=== PATIENT | female | born 1940 | race Caucasian/White ===

== ENCOUNTER 2016-09-27 13:51 | Outpatient (CLI) | payer OTHER, BC ==
[~2016-09-27 13:51] MED LIST: CALCIUM + D600 MG PO; CHROND PO; DOXYCYCLINE100 MG PO; GLUCOSAMINE PO; HCTZ/TRIAMTEREN1 TA1 PO; LOVASTATIN40 MG PO; METFORMIN HCL500 MG PO; MULTI COMPLETE PO; PERCOCET1 TA1 PO; PRILOSEC OTC20 MG; ROBAXIN500 M1 PO; TYLENOL325 MG PO; VITAMIN D-31000 UNIT PO; WALKER; ZESTRIL2.5 MG PO; [UNRECOGNIZED DRUG - OTHER]
--- NOTE | 2016-09-27 15:10 | DIAGNOSTIC IMAGING REPORT ---
PROCEDURE: US VENOUS - RIGHT EXT INDICATION: RLE PAIN,SWELLING R/O DVT TECHNIQUE: Duplex sonography of the deep venous system in the right lower extremity was performed. Compression and augmentation techniques were used. COMPARISON: None. FINDINGS: Each interrogated segment of deep vein from the common femoral vein into the calf veins demonstrates normal compressibility, augmentation and/or color Doppler flow without filling defect. No evidence of significant soft-tissue edema, soft-tissue mass or cyst. IMPRESSION: 1. No deep venous thrombosis in the right lower extremity. 2. Results were called Sparkle Tracey at 03:00 p.m.
== END 2016-09-27 23:00 ==
LOC: US SRH 13:51
DX: M79.661 Pain in right lower leg (principal)

== ENCOUNTER 2017-01-08 13:28 | Outpatient (CLI) | payer OTHER, BC ==
--- NOTE | 2017-01-08 15:11 | DIAGNOSTIC IMAGING REPORT ---
PROCEDURE: XR CHEST 2 VIEW INDICATION: ACUTE BRONC TECHNIQUE: PA and lateral views. COMPARISON: Chest 07/08/2015 FINDINGS: Heart size at the upper limits of normal, stable. Normal aortic contour. No central vascular congestion. Clear lungs. No pleural effusion or pneumothorax. Mild degenerative changes in the spine and shoulders. IMPRESSION: 1. No acute process.
== END 2017-01-08 23:00 ==
LOC: XR SRH 13:28
DX: J20.9 Acute bronchitis, unspecified (principal)

== ENCOUNTER 2017-02-02 12:29 | Emergency (ER) | payer OTHER, BC ==
--- NOTE | 2017-02-02 13:12 | DIAGNOSTIC IMAGING REPORT ---
PROCEDURE: XR CHEST 1 VIEW INDICATION: SHORTNESS OF BREATH TECHNIQUE: Portable AP view 12:53 p.m. COMPARISON: chest 01/08/2017 FINDINGS: Lungs are clear. Heart and mediastinum are normal. Thorax is normal. IMPRESSION: 1. Negative chest.
--- NOTE | 2017-02-02 13:15 | DIAGNOSTIC IMAGING REPORT ---
PROCEDURE: CT HEAD WITHOUT CONTRAST INDICATION: HEADACHE TECHNIQUE: Noncontrast axial images with sagittal and coronal reformations. COMPARISON: Head CT 07/08/2015. FINDINGS: Mild motion artifacts. Mild to moderate cortical atrophy with extensive white matter chronic ischemic changes. Normal ventricular system. There is no intracranial hemorrhage, acute CVA, mass or midline shift. Atherosclerosis of the vertebral and intracranial carotid arteries. Visualized sinuses and mastoids are clear. IMPRESSION: 1. No acute intracranial abnormality 2. Mild to moderate cortical atrophy with severe white matter chronic ischemic changes 3. Findings discussed with Dr. Mcdowell at 01:14 p.m., [place] Standard Time.
--- NOTE | 2017-02-02 14:13 | DIAGNOSTIC IMAGING REPORT ---
PROCEDURE: US BILATERAL CAROTID DOPPLER INDICATION: STROKE/CVA TECHNIQUE: Color Doppler duplex imaging of the carotid and vertebral vessels. COMPARISON: Bilateral carotid duplex ultrasound 07/10/2015. FINDINGS: Cardiac arrhythmia. Minimal plaque formation of the bifurcations bilaterally. Right common carotid artery peak systolic velocity 70 cm/second. Right internal carotid artery peak systolic velocity 99 cm/second. Right external carotid artery peak systolic velocity 60 cm/second. Right gbyedcbh-pi-xyzyfd carotid artery ratio 1.4 Right vertebral artery peak systolic velocity 72 cm/second antegrade. Left common carotid artery peak systolic velocity 120 cm/second. Left internal carotid artery peak systolic velocity 108 cm/second. Left external carotid artery peak systolic velocity 75 cm/second. Left cybletav-io-yjejjv carotid artery ratio 0.9 Left vertebral artery peak systolic velocity 85 cm/second antegrade. IMPRESSION: 1. Cardiac arrhythmia 2. Minimal plaque of the bifurcations without hemodynamically significant lesion 3. Bilateral ICA 5-15% stenosis Velocity criteria are extrapolated from diameter data as defined by the Society of Radiologists in Ultrasound Consensus Conference, Radiology 2003; 229; 340-346.
--- NOTE | 2017-02-02 14:13 | DIAGNOSTIC IMAGING REPORT ---
PROCEDURE: US BILATERAL CAROTID DOPPLER INDICATION: STROKE/CVA TECHNIQUE: Color Doppler duplex imaging of the carotid and vertebral vessels. COMPARISON: Bilateral carotid duplex ultrasound 07/10/2015. FINDINGS: Cardiac arrhythmia. Minimal plaque formation of the bifurcations bilaterally. Right common carotid artery peak systolic velocity 70 cm/second. Right internal carotid artery peak systolic velocity 99 cm/second. Right external carotid artery peak systolic velocity 60 cm/second. Right seaxoiuq-fn-bdkrey carotid artery ratio 1.4 Right vertebral artery peak systolic velocity 72 cm/second antegrade. Left common carotid artery peak systolic velocity 120 cm/second. Left internal carotid artery peak systolic velocity 108 cm/second. Left external carotid artery peak systolic velocity 75 cm/second. Left jsmwqmqk-aa-tchakn carotid artery ratio 0.9 Left vertebral artery peak systolic velocity 85 cm/second antegrade. IMPRESSION: 1. Cardiac arrhythmia 2. Minimal plaque of the bifurcations without hemodynamically significant lesion 3. Bilateral ICA 5-15% stenosis Velocity criteria are extrapolated from diameter data as defined by the Society of Radiologists in Ultrasound Consensus Conference, Radiology 2003; 229; 340-346.
--- NOTE | 2017-02-02 15:01 | ED CLINICAL REPORT ---
Clinical Report - Physicians/Mid Levels [facility] [address] [place] [address] 02/02/2017 12:29 Patient: JERRELL HUNT Time Seen: 12:40. Arrived- By ambulance. Historian- patient, EMS personnel, patient's physician and office PA. Note: Patient has a primary care physician on staff; PCP referred patient for evaluation. HISTORY OF PRESENT ILLNESS Chief Complaint: WEAKNESS and IMPAIRED SPEECH. Headache. Fall. This started about 1 week ago and is still present. It was gradual in onset and has been waxing/waning. The patient has had weakness. She has had tingling, (noting some mild bilateral hand tingling after a fall several days ago). She has had difficulty with speech and a recent fall. At its maximum deficit described as moderate. When seen in the E.D., deficit described as mild. Not lightheaded or vertiginous. No altered mental status, seizure or blackouts. Usually is alert and oriented X3. She usually walks using a walker. (last Sunday, pt was walking with walker, and walker flipped over, pt fell, has lower back and left sided pain, feels her speech started getting slurred on Sunday, 3 days ago). Similar symptoms previously: None. Recent medical care: The patient was seen recently in a clinic. REVIEW OF SYSTEMS No fever, chest pain, difficulty breathing, cough or sputum production. No sore throat, abdominal pain, nausea, diarrhea or black stools. No skin rash, enlarged lymph nodes, vomiting or bloody stools. The patient has had a moderate, constant global headache. The headache was gradual in onset and has been associated with weakness. She has had back pain. All systems otherwise negative, except as recorded above. PAST HISTORY ( PCP: DANNA [place], Dr Swift Hypertension. Hyperlipidemia. Reflux with frequent spells of epigastric pain.. Osteomyelitis. No history of coronary artery disease, congestive heart failure, heart rhythm problems or pulmonary embolism. SURGERIES: L Knee Sx staph infection left knee in past, is taking doxycycline for it). Medications: Docusate Calcium Oral, as needed. Robaxin Oral 500 mg, 1/2 tablet, 3x a day as needed. Triamcinolone Acetonide External (Cream 0.1 %), 2x a day as needed. Glucosamine-Chondroitin Oral. Calcium + D3 Oral 2 tabs, daily. Omeprazole Oral 20 mg, daily. Multivitamins Oral. Lovastatin Oral (Tablet 40 mg) 1 tablet, daily. Triamterene-HCTZ Oral (Capsule 37.5-25 mg) 1 capsule, daily. [place] Oral (Tablet 5-325 mg) 1-2 tabs prn pain. Doxycycline Hyclate Oral 100 mg twice daily. Aspirin Oral (Tablet Chewable 81 mg) 1 tablet. MetFORMIN HCl Oral 750mg ER [id number], daily. Allergies: Boniva. Gabapentin. Nortriptyline. Xarelto. SOCIAL HISTORY Never smoker. Occasional alcohol use. No drug use. Is a local resident. ADDITIONAL NOTES The nursing notes have been reviewed. PHYSICAL EXAM Vital Signs: 02/02/2017 12:50 BP: 198/99. 02/02/2017 12:49 BP: 208/115. HR: 80. RR: 16. O2 saturation: 100%. Temp: 98 F. Pain level now: 9/10. Appearance: Alert. No acute distress. Head: Head atraumatic. ENT: Normal ENT inspection. Airway intact. Pharynx normal. Neck: Trachea is not deviated. Normal inspection. Neck supple. Moderate soft tissue tenderness in the right mid and lower neck area and left mid and lower neck area. No decreased ROM in the neck, carotid bruit, JVD or meningeal signs. CVS: Heart sounds normal. Pulses normal. Respiratory: No respiratory distress. Abdomen: Soft and nontender. No organomegaly. Back: Normal inspection. Skin: Skin warm and dry. Normal skin color. No rash. Normal skin turgor. Extremities: Extremities exhibit normal ROM. No calf tenderness. No lower extremity edema. Neuro: Alert. Oriented X 3. Mood/affect normal. Speech normal. Cranial nerves normal (as tested). No cerebellar findings. No motor deficit. No sensory deficit. Reflexes normal. LABS, X-RAYS, AND EKG EKG: EKG time: (13:20). Normal sinus rhythm. Rate: 80. Normal P waves. Normal DONNA. Q waves in lead III and aVF. Normal axis. Normal ST and T waves. The study has been interpreted contemporaneously by me. The EKG appears to be a good tracing. Rhythm Strip #1: Normal sinus rhythm. Regular rhythm. Narrow QRS complexes. Chest X-ray: No acute disease. Views: AP (portable). Technique: good. The X-rays were interpreted contemporaneously by me. The X-rays were discussed with the radiologist (via PACS report). CT Head: Calcification present. No acute changes. No bony abnormalities, no hemorrhage, no intracranial mass, no midline shift and no hydrocephalus. Head CT performed without contrast. The study was independently viewed by me and interpreted by the radiologist. The study was discussed with the radiologist (at 13:15). Duplex Ultrasound: Right and left carotid study. Negative results. Laboratory Tests: UA-Culture if indicated: (MARCIA: 02/02/2017 12:53) ( [facility] 02/02/2017 13:13) Final results Test Result Flag Units (Reference) URINE COLOR YELLOW URINE APPEARANCE CLEAR URINE GLUCOSE NEGATIVE (NEGATIVE) URINE BILIRUBIN NEGATIVE (NEGATIVE) URINE KETONE NEGATIVE (NEGATIVE) URINE SPECIFIC GRAVITY <= 1.005 L (1.010-1.030) URINE PH 6.0 (5.0-8.0) URINE PROTEIN NEGATIVE (NEGATIVE) URINE UROBILINOGEN 0.2 EU/dL (0.2-1.0) URINE NITRITE NEGATIVE (NEGATIVE) URINE BLOOD TRACE-INTACT (NEGATIVE) URINE LEUK ESTERASE NEGATIVE (NEGATIVE) URINE RBC 1-3 rbc/hpf (0-1) URINE WBC 0-1 wbc/hpf (0-1) URINE EPITHELIAL CELLS 0-1 EPI/hpf (0-5) URINE BACTERIA TRACE (<1+) (NONE SEEN) URINE COMMENT CULT NOT INDICATED URINE CULTURES ARE SET-UP BASED ON THE FOLLOWING CRITERIA:POSITIVE NITRITEPOSITIVE LEUKOCYTE ESTERASEGREATER THAN 10 WHITE BLOOD CELLSMODERATE (2+) OR GREATER BACTERIA CBC w Diff: (MARCIA: 02/02/2017 13:19) ( [facility] 02/02/2017 13:44) Final results Test Result Flag Units (Reference) WHITE BLOOD COUNT 8.7 K/uL (4.5-11.5) RED BLOOD COUNT 4.25 M/uL (4.00-5.20) HEMOGLOBIN 12.0 gm/dL (12.0-16.0) HEMATOCRIT 36.3 % (36.0-46.0) MEAN CELL VOLUME 85 fL (80-100) MEAN CORPUSCULAR HGB 28 pg (26-34) MEAN CORPUSCULAR HGB CONC 33 g/dL (31-37) RED CELL DISTRIBUTION WIDTH 16.6 H % (11.6-14.8) PLATELET COUNT 281 K/uL (150-400) NEUTROPHIL % 72.2 % (50-75) LYMPH % 18.8 L % (25-40) MONO % 7.9 % (3-14) EOSINOPHIL % 1.0 % (0-4) BASOPHIL % 0.1 % (0-2) SED RATE WESTERGREN 28 mm/hr (0-30) PT with INR: (MARCIA: 02/02/2017 13:19) ( [facility] 02/02/2017 13:36) Final results Test Result Flag Units (Reference) INR 0.9 (0.8-1.2) Low Intensity Therapy: INR 1.5-2.0 PT range 18.5-23.1Mod.Intensity Therapy: INR 2.0-3.0 PT range 23.1-31.5High Intensity Therapy: INR 2.5-3.5 PT range 27.4-35.5High Intensity Therapy 2: INR 3.0-4.0 PT range 31.5-39.3 APTT 26 SECONDS (24-34) D-DIMER QUANTITATIVE 0.40 ug/mLFEU (0.27-0.52) The primary value of this quantitative assay relates toits negative predictive value (i.e. exclusion) of pulmonaryembolism/deep vein thrombosis/DIC.Elevated levels of d-dimer may also occur with:, age, cancer, inflammation, liver disease,post-op, infection, hematoma, coronary disease, peripheralarteriopathy, bleeding disorders and thrombolytic treatment.Results should be correlated with other clinical andradiological data.Testing Methodology: Latex Immunoassay Urine Drug Screen: (MARCIA: 02/02/2017 12:53) ( [facility] 02/02/2017 13:26) Final results Test Result Flag Units (Reference) AMPHETAMINE/METHAMPHETAMINE NEGATIVE (NEGATIVE) BARBITURATE NEGATIVE (NEGATIVE) BENZODIAZEPINE NEGATIVE (NEGATIVE) CANNABINOID NEGATIVE (NEGATIVE) COCAINE NEGATIVE (NEGATIVE) ECSTASY NEGATIVE (NEGATIVE) METHADONE NEGATIVE (NEGATIVE) OPIATE POSITIVE H (NEGATIVE) The urine drug screen is a qualitative screening test fordrug overdose and abuse. All screen results should beconsidered as presumptive.Drugs screened for are as follows:BenzodiazepinesCocaineAmphetamines/MetamphetaminesTHC (Tetrahydrocannabinol)OpiatesBarbituratesEcstasyMethadonePositive results are unconfirmed. For confirmation, notifythe lab for the specimen to be sent to the reference lab.All confirmations must be performed by a differentmethodology.The ingestion of natural herbal and plant productscontaining Ephedra/Ephedra metabolites can produce in urineone or more substances capable of cross reacting withamphetamine/methamphetamine immunoassays. These testsprovide a preliminary result only. A more specificalternative chemical method must be used to obtain aconfirmed analytical result. BNP: (MARCIA: 02/02/2017 13:19) ( [facility] 02/02/2017 13:44) Final results Test Result Flag Units (Reference) B-TYPE NATRIURETIC PEPTIDE 36.6 pg/ml (5-100) CHEM 13 PANEL: (MARCIA: 02/02/2017 13:19) ( [facility] 02/02/2017 14:15) Final results Test Result Flag Units (Reference) GLUCOSE 85 mg/dL (70-110) BUN 11 mg/dL (7-18) CREATININE 0.7 mg/dL (0.6-1.3) Estimated GFR >60 mL/min Estimated GFR- >60 mL/min Note: Persistent reduction over 3 months in eGFR<60 mL/min/1.73 m2 defines CKD. Patients with eGFR values>=60 mL/min/1.73 m2 may also have CKD if evidence ofpersistent proteinuria. Additional information may be foundat www.kidney.org. SODIUM 139 mmol/L (136-145) POTASSIUM 3.2 L mmol/L (3.5-5.1) CHLORIDE 101 mmol/L (98-107) CARBON DIOXIDE 27 mmol/L (21-32) CALCIUM 9.1 mg/dL (8.5-10.1) TOTAL PROTEIN 7.7 g/dL (6.4-8.2) ALBUMIN 3.5 g/dL (3.3-5.0) BILIRUBIN, TOTAL 0.4 mg/dL (0.0-1.0) ALKALINE PHOSPHATASE 73 U/L (46-116) AST (SGOT) 28 U/L (15-37) ALT (SGPT) 31 U/L (12-78) MAGNESIUM 1.4 L mg/dL (1.8-2.4) AMYLASE 69 U/L (25-115) CPK 83 U/L (24-260) TROPONIN I 0.05 ng/mL (0.00-1.5) TROPONIN REFERENCE RANGE:<0.1 NEGATIVE0.1-1.5 INDETERMINANT>1.5 POSITIVE ETHYL ALCOHOL < 3.0 L mg/dL (3-10) THYROID STIMULATING HORMONE 1.007 uIU/mL (0.30-3.74) . Bedside Tests: Glucose normal - 92 (performed at bedside). Pulse Oximetry: 02/02/2017 12:49 O2 saturation: 100%. (FIO2 - room air). Interpretation: normal. PROGRESS AND PROCEDURES Course of Care: Normal Saline 250 mL IVPB given. Potassium Chloride 40 meq PO given. Zofran 4 mg IVP given. Dilaudid 0.5 mg IVP given. 13:07 02/02/17. Just back from CT No evident neurologic deficit now - speech is normal and no focal weakness or numbness (FAST is neg) 14:36 02/02/17. BP: 156/72. HR: 74. RR: 18. O2 saturation: 98% on room air. Pain level now: 02/03. 15:00 02/02/17. Patient is stable. Physical exam findings are improved. Symptoms much better. D/w Dr Swift - does not feel patient requires admission now with neg Head CT and other work up. Requests stopping methocarbamol and begining tizanidine. Discussed case with health care provider (Belkis Cintron - just prior to patient's arrival). Discussed case with patient's primary care provider, (Jeniffer call returned 14:56). Reviewed test results. Agreed upon treatment plan. Health care provider will see patient in office. Patient/family counseled. Additional history sought (from family). Old ED records reviewed. Disposition: Discharged. Condition: stable and improved. CLINICAL IMPRESSION Episodic, poorly controlled tension and vascular headache. Essential hypertension. Hypokalemia INSTRUCTIONS Drink plenty of fluids. (Stop Robaxin and try tizanidine as prescribed). Warnings: Further evaluation is necessary. It is very important to follow up with a physician. CONTROLLED SUBSTANCE WARNINGS. GENERAL WARNINGS: Return or contact your physician immediately if your condition worsens or changes unexpectedly, if not improving as expected, or if other problems arise. Your Current Medications: STOP TAKING THE FOLLOWING MEDICATIONS: Robaxin Oral : 500 mg, 1/2 tablet 3x a day, prn. CONTINUE TAKING THE FOLLOWING MEDICATIONS: Aspirin Oral : Tablet Chewable 81 mg, 1 tablet. Calcium + D3 Oral : 2 tabs daily. Docusate Calcium Oral : prn. Doxycycline Hyclate Oral : 100 mg twice daily. Glucosamine-Chondroitin Oral. Lovastatin Oral : Tablet 40 mg, 1 tablet daily. MetFORMIN HCl Oral : 750mg ER [id number] daily. Multivitamins Oral. [place] Oral : Tablet 5-325 mg, 1-2 tabs prn pain. Omeprazole Oral : 20 mg daily. Triamcinolone Acetonide External : Cream 0.1 %, 2x a day, prn. Triamterene-HCTZ Oral : Capsule 37.5-25 mg, 1 capsule daily. Prescription Medications: Tizanidine 4 mg: Take 1 tablet orally every 8 hours as needed for muscle spasm. Dispense fifteen (15). No refills. Follow-up with: Troy Swift MD, [facility], , [facility], [address] [place] [address] Follow up in about three days. (Electronically signed by Mayur Mcdowell DO 02/02/2017 16:45)
--- NOTE | 2017-02-02 15:01 | ED CLINICAL REPORT ---
Clinical Report - Physicians/Mid Levels [facility] [address] [place] [address] 02/02/2017 12:29 Patient: JERRELL HUNT Time Seen: 12:40. Arrived- By ambulance. Historian- patient, EMS personnel, patient's physician and office PA. Note: Patient has a primary care physician on staff; PCP referred patient for evaluation. HISTORY OF PRESENT ILLNESS Chief Complaint: WEAKNESS and IMPAIRED SPEECH. Headache. Fall. This started about 1 week ago and is still present. It was gradual in onset and has been waxing/waning. The patient has had weakness. She has had tingling, (noting some mild bilateral hand tingling after a fall several days ago). She has had difficulty with speech and a recent fall. At its maximum deficit described as moderate. When seen in the E.D., deficit described as mild. Not lightheaded or vertiginous. No altered mental status, seizure or blackouts. Usually is alert and oriented X3. She usually walks using a walker. (last Sunday, pt was walking with walker, and walker flipped over, pt fell, has lower back and left sided pain, feels her speech started getting slurred on Sunday, 3 days ago). Similar symptoms previously: None. Recent medical care: The patient was seen recently in a clinic. REVIEW OF SYSTEMS No fever, chest pain, difficulty breathing, cough or sputum production. No sore throat, abdominal pain, nausea, diarrhea or black stools. No skin rash, enlarged lymph nodes, vomiting or bloody stools. The patient has had a moderate, constant global headache. The headache was gradual in onset and has been associated with weakness. She has had back pain. All systems otherwise negative, except as recorded above. PAST HISTORY ( PCP: DANNA Gillette, Dr Swift Hypertension. Hyperlipidemia. Reflux with frequent spells of epigastric pain.. Osteomyelitis. No history of coronary artery disease, congestive heart failure, heart rhythm problems or pulmonary embolism. SURGERIES: L Knee Sx staph infection left knee in past, is taking doxycycline for it). Medications: Docusate Calcium Oral, as needed. Robaxin Oral 500 mg, 1/2 tablet, 3x a day as needed. Triamcinolone Acetonide External (Cream 0.1 %), 2x a day as needed. Glucosamine-Chondroitin Oral. Calcium + D3 Oral 2 tabs, daily. Omeprazole Oral 20 mg, daily. Multivitamins Oral. Lovastatin Oral (Tablet 40 mg) 1 tablet, daily. Triamterene-HCTZ Oral (Capsule 37.5-25 mg) 1 capsule, daily. Archbold Oral (Tablet 5-325 mg) 1-2 tabs prn pain. Doxycycline Hyclate Oral 100 mg twice daily. Aspirin Oral (Tablet Chewable 81 mg) 1 tablet. MetFORMIN HCl Oral 750mg ER QA90cbmy, daily. Allergies: Boniva. Gabapentin. Nortriptyline. Xarelto. SOCIAL HISTORY Never smoker. Occasional alcohol use. No drug use. Is a local resident. ADDITIONAL NOTES The nursing notes have been reviewed. PHYSICAL EXAM Vital Signs: 02/02/2017 12:50 BP: 198/99. 02/02/2017 12:49 BP: 208/115. HR: 80. RR: 16. O2 saturation: 100%. Temp: 98 F. Pain level now: 9/10. Appearance: Alert. No acute distress. Head: Head atraumatic. ENT: Normal ENT inspection. Airway intact. Pharynx normal. Neck: Trachea is not deviated. Normal inspection. Neck supple. Moderate soft tissue tenderness in the right mid and lower neck area and left mid and lower neck area. No decreased ROM in the neck, carotid bruit, JVD or meningeal signs. CVS: Heart sounds normal. Pulses normal. Respiratory: No respiratory distress. Abdomen: Soft and nontender. No organomegaly. Back: Normal inspection. Skin: Skin warm and dry. Normal skin color. No rash. Normal skin turgor. Extremities: Extremities exhibit normal ROM. No calf tenderness. No lower extremity edema. Neuro: Alert. Oriented X 3. Mood/affect normal. Speech normal. Cranial nerves normal (as tested). No cerebellar findings. No motor deficit. No sensory deficit. Reflexes normal. LABS, X-RAYS, AND EKG EKG: EKG time: (13:20). Normal sinus rhythm. Rate: 80. Normal P waves. Normal DONNA. Q waves in lead III and aVF. Normal axis. Normal ST and T waves. The study has been interpreted contemporaneously by me. The EKG appears to be a good tracing. Rhythm Strip #1: Normal sinus rhythm. Regular rhythm. Narrow QRS complexes. Chest X-ray: No acute disease. Views: AP (portable). Technique: good. The X-rays were interpreted contemporaneously by me. The X-rays were discussed with the radiologist (via PACS report). CT Head: Calcification present. No acute changes. No bony abnormalities, no hemorrhage, no intracranial mass, no midline shift and no hydrocephalus. Head CT performed without contrast. The study was independently viewed by me and interpreted by the radiologist. The study was discussed with the radiologist (at 13:15). Duplex Ultrasound: Right and left carotid study. Negative results. Laboratory Tests: UA-Culture if indicated: (MARCIA: 02/02/2017 12:53) ( [facility] 02/02/2017 13:13) Final results Test Result Flag Units (Reference) URINE COLOR YELLOW URINE APPEARANCE CLEAR URINE GLUCOSE NEGATIVE (NEGATIVE) URINE BILIRUBIN NEGATIVE (NEGATIVE) URINE KETONE NEGATIVE (NEGATIVE) URINE SPECIFIC GRAVITY <= 1.005 L (1.010-1.030) URINE PH 6.0 (5.0-8.0) URINE PROTEIN NEGATIVE (NEGATIVE) URINE UROBILINOGEN 0.2 EU/dL (0.2-1.0) URINE NITRITE NEGATIVE (NEGATIVE) URINE BLOOD TRACE-INTACT (NEGATIVE) URINE LEUK ESTERASE NEGATIVE (NEGATIVE) URINE RBC 1-3 rbc/hpf (0-1) URINE WBC 0-1 wbc/hpf (0-1) URINE EPITHELIAL CELLS 0-1 EPI/hpf (0-5) URINE BACTERIA TRACE (<1+) (NONE SEEN) URINE COMMENT CULT NOT INDICATED URINE CULTURES ARE SET-UP BASED ON THE FOLLOWING CRITERIA:POSITIVE NITRITEPOSITIVE LEUKOCYTE ESTERASEGREATER THAN 10 WHITE BLOOD CELLSMODERATE (2+) OR GREATER BACTERIA CBC w Diff: (MARCIA: 02/02/2017 13:19) ( [facility] 02/02/2017 13:44) Final results Test Result Flag Units (Reference) WHITE BLOOD COUNT 8.7 K/uL (4.5-11.5) RED BLOOD COUNT 4.25 M/uL (4.00-5.20) HEMOGLOBIN 12.0 gm/dL (12.0-16.0) HEMATOCRIT 36.3 % (36.0-46.0) MEAN CELL VOLUME 85 fL (80-100) MEAN CORPUSCULAR HGB 28 pg (26-34) MEAN CORPUSCULAR HGB CONC 33 g/dL (31-37) RED CELL DISTRIBUTION WIDTH 16.6 H % (11.6-14.8) PLATELET COUNT 281 K/uL (150-400) NEUTROPHIL % 72.2 % (50-75) LYMPH % 18.8 L % (25-40) MONO % 7.9 % (3-14) EOSINOPHIL % 1.0 % (0-4) BASOPHIL % 0.1 % (0-2) SED RATE WESTERGREN 28 mm/hr (0-30) PT with INR: (MARCIA: 02/02/2017 13:19) ( [facility] 02/02/2017 13:36) Final results Test Result Flag Units (Reference) INR 0.9 (0.8-1.2) Low Intensity Therapy: INR 1.5-2.0 PT range 18.5-23.1Mod.Intensity Therapy: INR 2.0-3.0 PT range 23.1-31.5High Intensity Therapy: INR 2.5-3.5 PT range 27.4-35.5High Intensity Therapy 2: INR 3.0-4.0 PT range 31.5-39.3 APTT 26 SECONDS (24-34) D-DIMER QUANTITATIVE 0.40 ug/mLFEU (0.27-0.52) The primary value of this quantitative assay relates toits negative predictive value (i.e. exclusion) of pulmonaryembolism/deep vein thrombosis/DIC.Elevated levels of d-dimer may also occur with:, age, cancer, inflammation, liver disease,post-op, infection, hematoma, coronary disease, peripheralarteriopathy, bleeding disorders and thrombolytic treatment.Results should be correlated with other clinical andradiological data.Testing Methodology: Latex Immunoassay Urine Drug Screen: (MARCIA: 02/02/2017 12:53) ( [facility] 02/02/2017 13:26) Final results Test Result Flag Units (Reference) AMPHETAMINE/METHAMPHETAMINE NEGATIVE (NEGATIVE) BARBITURATE NEGATIVE (NEGATIVE) BENZODIAZEPINE NEGATIVE (NEGATIVE) CANNABINOID NEGATIVE (NEGATIVE) COCAINE NEGATIVE (NEGATIVE) ECSTASY NEGATIVE (NEGATIVE) METHADONE NEGATIVE (NEGATIVE) OPIATE POSITIVE H (NEGATIVE) The urine drug screen is a qualitative screening test fordrug overdose and abuse. All screen results should beconsidered as presumptive.Drugs screened for are as follows:BenzodiazepinesCocaineAmphetamines/MetamphetaminesTHC (Tetrahydrocannabinol)OpiatesBarbituratesEcstasyMethadonePositive results are unconfirmed. For confirmation, notifythe lab for the specimen to be sent to the reference lab.All confirmations must be performed by a differentmethodology.The ingestion of natural herbal and plant productscontaining Ephedra/Ephedra metabolites can produce in urineone or more substances capable of cross reacting withamphetamine/methamphetamine immunoassays. These testsprovide a preliminary result only. A more specificalternative chemical method must be used to obtain aconfirmed analytical result. BNP: (MARCIA: 02/02/2017 13:19) ( [facility] 02/02/2017 13:44) Final results Test Result Flag Units (Reference) B-TYPE NATRIURETIC PEPTIDE 36.6 pg/ml (5-100) CHEM 13 PANEL: (MARCIA: 02/02/2017 13:19) ( [facility] 02/02/2017 14:15) Final results Test Result Flag Units (Reference) GLUCOSE 85 mg/dL (70-110) BUN 11 mg/dL (7-18) CREATININE 0.7 mg/dL (0.6-1.3) Estimated GFR >60 mL/min Estimated GFR- >60 mL/min Note: Persistent reduction over 3 months in eGFR<60 mL/min/1.73 m2 defines CKD. Patients with eGFR values>=60 mL/min/1.73 m2 may also have CKD if evidence ofpersistent proteinuria. Additional information may be foundat www.kidney.org. SODIUM 139 mmol/L (136-145) POTASSIUM 3.2 L mmol/L (3.5-5.1) CHLORIDE 101 mmol/L (98-107) CARBON DIOXIDE 27 mmol/L (21-32) CALCIUM 9.1 mg/dL (8.5-10.1) TOTAL PROTEIN 7.7 g/dL (6.4-8.2) ALBUMIN 3.5 g/dL (3.3-5.0) BILIRUBIN, TOTAL 0.4 mg/dL (0.0-1.0) ALKALINE PHOSPHATASE 73 U/L (46-116) AST (SGOT) 28 U/L (15-37) ALT (SGPT) 31 U/L (12-78) MAGNESIUM 1.4 L mg/dL (1.8-2.4) AMYLASE 69 U/L (25-115) CPK 83 U/L (24-260) TROPONIN I 0.05 ng/mL (0.00-1.5) TROPONIN REFERENCE RANGE:<0.1 NEGATIVE0.1-1.5 INDETERMINANT>1.5 POSITIVE ETHYL ALCOHOL < 3.0 L mg/dL (3-10) THYROID STIMULATING HORMONE 1.007 uIU/mL (0.30-3.74) . Bedside Tests: Glucose normal - 92 (performed at bedside). Pulse Oximetry: 02/02/2017 12:49 O2 saturation: 100%. (FIO2 - room air). Interpretation: normal. PROGRESS AND PROCEDURES Course of Care: Normal Saline 250 mL IVPB given. Potassium Chloride 40 meq PO given. Zofran 4 mg IVP given. Dilaudid 0.5 mg IVP given. 13:07 02/02/17. Just back from CT No evident neurologic deficit now - speech is normal and no focal weakness or numbness (FAST is neg) 14:36 02/02/17. BP: 156/72. HR: 74. RR: 18. O2 saturation: 98% on room air. Pain level now: 02/03. 15:00 02/02/17. Patient is stable. Physical exam findings are improved. Symptoms much better. D/w Dr Swift - does not feel patient requires admission now with neg Head CT and other work up. Requests stopping methocarbamol and begining tizanidine. Discussed case with health care provider (Belkis Cintron - just prior to patient's arrival). Discussed case with patient's primary care provider, (Jeniffer call returned 14:56). Reviewed test results. Agreed upon treatment plan. Health care provider will see patient in office. Patient/family counseled. Additional history sought (from family). Old ED records reviewed. Disposition: Discharged. Condition: stable and improved. CLINICAL IMPRESSION Episodic, poorly controlled tension and vascular headache. Essential hypertension. Hypokalemia INSTRUCTIONS Drink plenty of fluids. (Stop Robaxin and try tizanidine as prescribed). Warnings: Further evaluation is necessary. It is very important to follow up with a physician. CONTROLLED SUBSTANCE WARNINGS. GENERAL WARNINGS: Return or contact your physician immediately if your condition worsens or changes unexpectedly, if not improving as expected, or if other problems arise. Your Current Medications: STOP TAKING THE FOLLOWING MEDICATIONS: Robaxin Oral : 500 mg, 1/2 tablet 3x a day, prn. CONTINUE TAKING THE FOLLOWING MEDICATIONS: Aspirin Oral : Tablet Chewable 81 mg, 1 tablet. Calcium + D3 Oral : 2 tabs daily. Docusate Calcium Oral : prn. Doxycycline Hyclate Oral : 100 mg twice daily. Glucosamine-Chondroitin Oral. Lovastatin Oral : Tablet 40 mg, 1 tablet daily. MetFORMIN HCl Oral : 750mg ER LD95csef daily. Multivitamins Oral. Archbold Oral : Tablet 5-325 mg, 1-2 tabs prn pain. Omeprazole Oral : 20 mg daily. Triamcinolone Acetonide External : Cream 0.1 %, 2x a day, prn. Triamterene-HCTZ Oral : Capsule 37.5-25 mg, 1 capsule daily. Prescription Medications: Tizanidine 4 mg: Take 1 tablet orally every 8 hours as needed for muscle spasm. Dispense fifteen (15). No refills. Follow-up with: Troy Swift MD, [facility], , [facility], [address] [place] [address] Follow up in about three days. (Electronically signed by Mayur Mcdowell DO 02/02/2017 16:45)
--- NOTE | 2017-02-02 15:02 | ED NURSING NOTES ---
Clinical Report - Nurses [facility] [address] [place] [address] 02/02/2017 12:29 Patient: JERRELL HUNT TRIAGE Triage time 12:31. Acuity: LEVEL 3. Chief Complaint: FALL (last Sunday, pt was walking with walker, and walker flipped over, pt fell, has lower back and left sided pain, feels her speech started getting slurred on Sunday, 3 days ago). Alert. --12:43 Jovanna Serrato R.N. Alert. --12:50 Jovanna Serrato R.N. 12:49 02/02/17. BP: 208/115 taken on the left arm. HR: 80. RR: 16. O2 saturation: 100%. Temp: 98 F. Pain level now: 05/06. --12:50 Jovanna Serrato R.N. 12:50 02/02/17. BP: 198/99 taken on the right arm. --12:51 Jovanna Serrato R.N. Weight: 78 kg stated. Height/Length: 62 inches Per Patient. BMI: 31.5. --12:42 Jovanna Serrato R.N. Medications Aspirin Oral (Tablet Chewable 81 mg) 1 tablet. MetFORMIN HCl Oral 750mg ER [id number], daily. --13:06 Jovanna Serrato R.N. Doxycycline Hyclate Oral 100 mg twice daily. --13:29 Jovanna Serrato R.N. Buckner Oral (Tablet 5-325 mg) 1-2 tabs prn pain. --13:29 Jovanna Serrato R.N. Triamterene-HCTZ Oral (Capsule 37.5-25 mg) 1 capsule, daily. --13:30 Jovanna Serrato R.N. Lovastatin Oral (Tablet 40 mg) 1 tablet, daily. --13:31 Jovanna Serrato R.N. Multivitamins Oral. --13:31 Jovanna Serrato R.N. Omeprazole Oral 20 mg, daily. --13:31 Jovanna Serrato R.N. Calcium + D3 Oral 2 tabs, daily. --13:32 Jovanna Serrato R.N. Glucosamine-Chondroitin Oral. --13:32 Jovanna Serrato R.N. Triamcinolone Acetonide External (Cream 0.1 %), 2x a day as needed. --13:32 Jovanna Serrato R.N. Robaxin Oral 500 mg, 1/2 tablet, 3x a day as needed. --13:33 Jovanna Serrato R.N. Docusate Calcium Oral, as needed. --13:33 Jovanna Serrato R.N. Allergies Boniva. Gabapentin. Nortriptyline. Xarelto. --13:05 Jovanna Serrato R.N. History Arrived by EMS. Historian: EMS and patient. Primary physician (Belkis Cintron, Dr. Swift). Location of injuries: lower back, left hip and left thigh. The patient had loss of consciousness. Treatment BAR TACKER: See EMS report. SOCIAL HX: Infectious disease exposure. (staph infection left knee in past, is taking doxycycline for it). --12:43 Jovanna Serrato R.N. SOCIAL HX: Never smoker. No alcohol use. --13:34 Jovanna Serrato R.N. SOCIAL HX: No drug use. --13:34 Jovanna Serrato R.N. FUNCTIONAL ASSESSMENT: Functional assessment performed: uses walker; hearing impairment present- this hearing impairment is an ongoing problem. --14:29 Jovanna Serrato R.N. PROBLEMS: Degenerative Joint Disease. Insomnia. Diabetes Mellitus Type 2. GERD. Back Pain. Hyperlipidemia. Hypertension. Osteoporosis. Osteomyelitis. Staph Infections. --13:03 Jovanna Serrato R.N. ADDITIONAL SURGERIES: Appendectomy. Cholecystectomy. Cleaning of abscess left knee. Hernia Repair. Hysterectomy. Left arm surgery/blood clot removal. 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 Right knee replacement 2006. Right top rib removed. Tonsillectomy. --13:03 Jovanna Serrato R.N. Interventions ID band on patient. To room. --12:43 Jovanna Serrato R.N. PHYSICAL ASSESSMENT HEENT: ( Pt complaining mostly of headache. Pt does not really know what happened when she fell, and does not know if she lost consciousness or not). --13:36 Jovanna Serrato R.N. 12:40. GENERAL / NEURO / PSYCH: Oriented X 4. Nuris Coma Scale: 15- eyes open spontaneously (4); best verbal response- oriented x 4 (5); best motor response- obeys commands (6). Speech normal. Mood/affect normal. Moves all extremities equally. No motor deficit. No sensory deficit. Abnormal gait due to pain in the left lower extremity (due to knee surgery and staph infection). Able to ambulate with a limp. Ambulates using a walker. ( FAST negative.). --14:44 Jovanna Serrato R.N. NURSING PROGRESS NOTES ( Blood Glucose 92). --12:48 Manan Camacho R.N. 12:55 02/02/17. ( Pt assisted to bathroom, UA obtained, back to bed. CXR done in room). --12:55 Jovanna Serrato R.N. 12:55 02/02/17. Patient identifiers checked. Call light placed in reach. Bed placed in lowest position. Patient ready for evaluation- chart flagged. --12:55 Jovanna Serrato R.N. 13:00. Patient transported to CT by stretcher with tech. --13:04 Jovanna Serrato R.N. 13:36 02/02/2017 Site #1 started via IV in the left antecubital space with an 20g angiocath, with aseptic technique and good blood return; one attempt. Blood drawn: rainbow set. Labeled in the presence of the patient and sent to the lab. Saline lock flushed with 10 mL saline. --13:36 Jovanna Serrato R.N. 13:37 02/02/17. ( Pt's brace on left leg removed by fuel retrofitting technician for EKG, then pt assisted to BSC, 2 assist, to void a 2nd time.). --13:37 Jovanna Serrato R.N. 13:44 02/02/2017 Zofran (Ondansetron HCl) IVP 4 mg given over 2 minute(s) via site #1. Allergies verified and confirmed 5 rights. --13:46 Jovanna Serrato R.N. 13:46 02/02/2017 Dilaudid (HYDROmorphone HCl PF) IVP 0.5 mg given over 1 minute(s) via site #1. Allergies verified, confirmed 5 rights and sedative warning given. --13:46 Jovanna Serrato R.N. EKG time: (1320). EKG was ordered, performed by a tech and shown to the ED physician. --13:51 Sho Aviles 13:57 02/02/2017 Started bag #1 1000 mL IV Fluids IV NS (Saline); at 250 mL/hr via site #1 via IV pump. Confirmed 5 rights. --13:57 Jovanna Serrato R.N. 14:36 02/02/17. BP: 156/72. HR: 74. RR: 18. O2 saturation: 98% on room air. Pain level now: 02/03. --14:37 Jovanna Serrato R.N. 14:56 02/02/17. Assisted patient to bedside commode and back to bed; tolerated well (2 person assist, fuel retrofitting technician and myself, voided small amount clear straw urine). --14:56 Jovanna Serrato R.N. 15:46 02/02/2017 Potassium Chloride (Potassium Chloride ER) PO Tablets 40 meq given. Allergies verified and confirmed 5 rights. --15:46 Patience Reagan R.N. DISPOSITION / DISCHARGE 15:55 02/02/17. BP: 155/71. HR: 80. RR: 18. O2 saturation: 98%. Pain level now: 02/03. --16:23 Jovanna Serrato R.N. Departure time: 1555. Condition at departure: improved. No learning barriers present. Discharge instructions provided and reviewed with the patient and family. Reviewed medication(s) information. Prescription(s) given to the patient. Treatments reviewed. Reviewed referral to family practice for followup. Patient verbalized understanding. Written instructions provided. The patient was discharged home and accompanied by family. She left the Emergency Department ambulatory, via private vehicle and (with walker, escorted patient and her son to the vehicle). Family member driving. --16:32 Jovanna Serrato R.N. Locked/Released at 02/02/2017 16:32 by Jovanna Serrato R.N.
--- NOTE | 2017-02-02 15:02 | ED ORDER SUMMARY ---
..... Patient: JERRELL HUNT OrderSheet [facility] VisitID: [id number] [address] [place] [address] 76y, F Registration Date/Time: 02/02/2017 ORDER SHEET Weight: 78.0 kg (stated) Allergies: Boniva, Gabapentin, Nortriptyline, Xarelto GENERAL ORDERS: Chest 1V Urgent (12:40 02/02/2017 PHutchinson DO) (Ack 12:43 KHoerner) (13:12 LSullivan R.N.) Bilingual Social Worker (Continuous) (12:40 02/02/2017 PHutchinson DO) (12:44 JSimbeck R.N.) CT Head wo Cont (speech slurred) Urgent (12:41 02/02/2017 PHutchinson DO) (Ack 12:43 KHoerner) (13:12 LSullivan R.N.) UA-Culture if indicated Urgent (12:41 02/02/2017 PHutchinson DO) (Ack 12:43 KHoerner) (13:12 LSullivan R.N.) Cardiac Panel Stat (12:41 02/02/2017 PHutchinson DO) (Ack 12:43 KHoerner) (13:37 LSullivan R.N.) BNP Urgent (12:41 02/02/2017 PHutchinson DO) (Ack 12:43 KHoerner) (13:37 LSullivan R.N.) D-Dimer Urgent (12:41 02/02/2017 PHutchinson DO) (Ack 12:43 KHoerner) (13:37 LSullivan R.N.) Amylase Urgent (12:41 02/02/2017 PHutchinson DO) (Ack 12:43 KHoerner) (13:37 LSullivan R.N.) PT with INR Urgent (12:41 02/02/2017 PHutchinson DO) (Ack 12:43 KHoerner) (13:37 LSullivan R.N.) PTT Urgent (12:41 02/02/2017 PHutchinson DO) (Ack 12:43 KHoerner) (13:37 LSullivan R.N.) ESR Urgent (12:41 02/02/2017 PHutchinson DO) (Ack 12:43 KHoerner) (13:37 LSullivan R.N.) TSH Urgent (12:41 02/02/2017 PHutchinson DO) (Ack 12:43 KHoerner) (13:37 LSullivan R.N.) Ethyl Alcohol Urgent (12:41 02/02/2017 PHutchinson DO) (Ack 12:43 KHoerner) (13:37 LSullivan R.N.) Urine Drug Screen Urgent (12:41 02/02/2017 PHutchinson DO) (Ack 12:43 KHoerner) (13:12 LSullivan R.N.) Oxygen (2 L/min) (NC) (12:41 02/02/2017 PHutchinson DO) (Cancelled: Other13:58 PHutchinson DO) Pulse oximeter (12:41 02/02/2017 PHutchinson DO) (12:44 JSimbeck R.N.) EKG - ER Stat (12:41 02/02/2017 PHutchinson DO) (13:21 OHernandez) Vitals (12:41 02/02/2017 PHutchinson DO) (12:44 JSimbeck R.N.) POC Glucose (12:41 02/02/2017 PHutchinson DO) (13:12 LSullivan R.N.) US Carotid Doppler Bilat Urgent (12:51 02/02/2017 PHutchinson DO) (Ack 13:13 KHoerner) (13:37 LSullivan R.N.) Call (Place call to): (Dr Swift) (14:49 02/02/2017 PHutchinson DO) (14:51 KHoerner) MEDICATION ORDERS: Potassium Chloride PO 40 meq (NOW) (14:48 02/02/2017 PHutchinson DO) (Ack 15:37 Antwan R.N.) (15:46 Antwan R.N.) IV FLUIDS: IV NS : initial bolus 250 mL (1000 mL/hr), then 250 mL/hr for X3 (NOW) (12:40 02/02/2017 PHutchinson DO) (13:57 LSullivan R.N.) Zofran IV 4 mg (NOW) (12:41 02/02/2017 Maribell CHIRINOS) (13:46 LSullivan R.N.) Dilaudid IV 0.5 mg (HIGH ALERT MEDICATION, NOW) (13:09 02/02/2017 Maribell CHIRINOS) (13:46 LSullivan R.N.) ORDER SHEET NOTES: [Electronically signed by Jovanna Serrato R.N. (16:32 02/02/2017)] [Electronically signed by Mayur Mcdowell DO (16:45 02/02/2017)] [Electronically locked/signed by Jovanna Serrato R.N. (16:32 02/02/2017)]
--- NOTE | 2017-02-02 15:02 | ED ORDER SUMMARY ---
..... Patient: JERRELL HUNT OrderSheet [facility] VisitID: [id number] [address] [place] [address] 76y, F Registration Date/Time: 02/02/2017 ORDER SHEET Weight: 78.0 kg (stated) Allergies: Boniva, Gabapentin, Nortriptyline, Xarelto GENERAL ORDERS: Chest 1V Urgent (12:40 02/02/2017 PHutchinson DO) (Ack 12:43 KHoerner) (13:12 LSullivan R.N.) Pouncing Machine Operator (Continuous) (12:40 02/02/2017 PHutchinson DO) (12:44 JSimbeck R.N.) CT Head wo Cont (speech slurred) Urgent (12:41 02/02/2017 PHutchinson DO) (Ack 12:43 KHoerner) (13:12 LSullivan R.N.) UA-Culture if indicated Urgent (12:41 02/02/2017 PHutchinson DO) (Ack 12:43 KHoerner) (13:12 LSullivan R.N.) Cardiac Panel Stat (12:41 02/02/2017 PHutchinson DO) (Ack 12:43 KHoerner) (13:37 LSullivan R.N.) BNP Urgent (12:41 02/02/2017 PHutchinson DO) (Ack 12:43 KHoerner) (13:37 LSullivan R.N.) D-Dimer Urgent (12:41 02/02/2017 PHutchinson DO) (Ack 12:43 KHoerner) (13:37 LSullivan R.N.) Amylase Urgent (12:41 02/02/2017 PHutchinson DO) (Ack 12:43 KHoerner) (13:37 LSullivan R.N.) PT with INR Urgent (12:41 02/02/2017 PHutchinson DO) (Ack 12:43 KHoerner) (13:37 LSullivan R.N.) PTT Urgent (12:41 02/02/2017 PHutchinson DO) (Ack 12:43 KHoerner) (13:37 LSullivan R.N.) ESR Urgent (12:41 02/02/2017 PHutchinson DO) (Ack 12:43 KHoerner) (13:37 LSullivan R.N.) TSH Urgent (12:41 02/02/2017 PHutchinson DO) (Ack 12:43 KHoerner) (13:37 LSullivan R.N.) Ethyl Alcohol Urgent (12:41 02/02/2017 PHutchinson DO) (Ack 12:43 KHoerner) (13:37 LSullivan R.N.) Urine Drug Screen Urgent (12:41 02/02/2017 PHutchinson DO) (Ack 12:43 KHoerner) (13:12 LSullivan R.N.) Oxygen (2 L/min) (NC) (12:41 02/02/2017 PHutchinson DO) (Cancelled: Other13:58 PHutchinson DO) Pulse oximeter (12:41 02/02/2017 PHutchinson DO) (12:44 JSimbeck R.N.) EKG - ER Stat (12:41 02/02/2017 PHutchinson DO) (13:21 OHernandez) Vitals (12:41 02/02/2017 PHutchinson DO) (12:44 JSimbeck R.N.) POC Glucose (12:41 02/02/2017 PHutchinson DO) (13:12 LSullivan R.N.) US Carotid Doppler Bilat Urgent (12:51 02/02/2017 PHutchinson DO) (Ack 13:13 KHoerner) (13:37 LSullivan R.N.) Call (Place call to): (Dr Swift) (14:49 02/02/2017 PHutchinson DO) (14:51 KHoerner) MEDICATION ORDERS: Potassium Chloride PO 40 meq (NOW) (14:48 02/02/2017 PHutchinson DO) (Ack 15:37 Antwan R.N.) (15:46 Antwan R.N.) IV FLUIDS: IV NS : initial bolus 250 mL (1000 mL/hr), then 250 mL/hr for X3 (NOW) (12:40 02/02/2017 PHutchinson DO) (13:57 LSullivan R.N.) Zofran IV 4 mg (NOW) (12:41 02/02/2017 Maribell CHIRINOS) (13:46 LSullivan R.N.) Dilaudid IV 0.5 mg (HIGH ALERT MEDICATION, NOW) (13:09 02/02/2017 Maribell CHIRINOS) (13:46 LSullivan R.N.) ORDER SHEET NOTES: [Electronically signed by Jovanna Serrato R.N. (16:32 02/02/2017)] [Electronically signed by Mayur Mcdowell DO (16:45 02/02/2017)] [Electronically locked/signed by Jovanna Serrato R.N. (16:32 02/02/2017)]
--- NOTE | 2017-02-02 15:02 | ED NURSING NOTES ---
Clinical Report - Nurses [facility] [address] [place] [address] 02/02/2017 12:29 Patient: JERRELL HUNT TRIAGE Triage time 12:31. Acuity: LEVEL 3. Chief Complaint: FALL (last Sunday, pt was walking with walker, and walker flipped over, pt fell, has lower back and left sided pain, feels her speech started getting slurred on Sunday, 3 days ago). Alert. --12:43 Jovanna Serrato R.N. Alert. --12:50 Jovanna Serrato R.N. 12:49 02/02/17. BP: 208/115 taken on the left arm. HR: 80. RR: 16. O2 saturation: 100%. Temp: 98 F. Pain level now: 05/06. --12:50 Jovanna Serrato R.N. 12:50 02/02/17. BP: 198/99 taken on the right arm. --12:51 Jovanna Serrato R.N. Weight: 78 kg stated. Height/Length: 62 inches Per Patient. BMI: 31.5. --12:42 Jovanna Serrato R.N. Medications Aspirin Oral (Tablet Chewable 81 mg) 1 tablet. MetFORMIN HCl Oral 750mg ER [id number], daily. --13:06 Jovanna Serrato R.N. Doxycycline Hyclate Oral 100 mg twice daily. --13:29 Jovanna Serrato R.N. [place] Oral (Tablet 5-325 mg) 1-2 tabs prn pain. --13:29 Jovanna Serrato R.N. Triamterene-HCTZ Oral (Capsule 37.5-25 mg) 1 capsule, daily. --13:30 Jovanna Serrato R.N. Lovastatin Oral (Tablet 40 mg) 1 tablet, daily. --13:31 Jovanna Serrato R.N. Multivitamins Oral. --13:31 Jovanna Serrato R.N. Omeprazole Oral 20 mg, daily. --13:31 Jovanna Serrato R.N. Calcium + D3 Oral 2 tabs, daily. --13:32 Jovanna Serrato R.N. Glucosamine-Chondroitin Oral. --13:32 Jovanna Serrato R.N. Triamcinolone Acetonide External (Cream 0.1 %), 2x a day as needed. --13:32 Jovanna Serrato R.N. Robaxin Oral 500 mg, 1/2 tablet, 3x a day as needed. --13:33 Jovanna Serrato R.N. Docusate Calcium Oral, as needed. --13:33 Jovanna Serrato R.N. Allergies Boniva. Gabapentin. Nortriptyline. Xarelto. --13:05 Jovanna Serrato R.N. History Arrived by EMS. Historian: EMS and patient. Primary physician (Belkis Cintron, Dr. Swift). Location of injuries: lower back, left hip and left thigh. The patient had loss of consciousness. 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 SOCIAL HX: Infectious disease exposure. (staph infection left knee in past, is taking doxycycline for it). --12:43 Jovanna Serrato R.N. SOCIAL HX: Never smoker. No alcohol use. --13:34 Jovanna Serrato R.N. SOCIAL HX: No drug use. --13:34 Jovanna Serrato R.N. FUNCTIONAL ASSESSMENT: Functional assessment performed: uses walker; hearing impairment present- this hearing impairment is an ongoing problem. --14:29 Jovanna Serrato R.N. PROBLEMS: Degenerative Joint Disease. Insomnia. Diabetes Mellitus Type 2. GERD. Back Pain. Hyperlipidemia. Hypertension. Osteoporosis. Osteomyelitis. Staph Infections. --13:03 Jovanna Serrato R.N. ADDITIONAL SURGERIES: Appendectomy. Cholecystectomy. Cleaning of abscess left knee. Hernia Repair. Hysterectomy. Left arm surgery/blood clot removal. 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 Right knee replacement 2006. Right top rib removed. Tonsillectomy. --13:03 Jovanna Serrato R.N. Interventions ID band on patient. To room. --12:43 Jovanna Serrato R.N. PHYSICAL ASSESSMENT HEENT: ( Pt complaining mostly of headache. Pt does not really know what happened when she fell, and does not know if she lost consciousness or not). --13:36 Jovanna Serrato R.N. 12:40. GENERAL / NEURO / PSYCH: Oriented X 4. Nuris Coma Scale: 15- eyes open spontaneously (4); best verbal response- oriented x 4 (5); best motor response- obeys commands (6). Speech normal. Mood/affect normal. Moves all extremities equally. No motor deficit. No sensory deficit. Abnormal gait due to pain in the left lower extremity (due to knee surgery and staph infection). Able to ambulate with a limp. Ambulates using a walker. ( FAST negative.). --14:44 Jovanna Serrato R.N. NURSING PROGRESS NOTES ( Blood Glucose 92). --12:48 Manan Camacho R.N. 12:55 02/02/17. ( Pt assisted to bathroom, UA obtained, back to bed. CXR done in room). --12:55 Jovanna Serrato R.N. 12:55 02/02/17. Patient identifiers checked. Call light placed in reach. Bed placed in lowest position. Patient ready for evaluation- chart flagged. --12:55 Jovanna Serrato R.N. 13:00. Patient transported to CT by stretcher with tech. --13:04 Jovanna Serrato R.N. 13:36 02/02/2017 Site #1 started via IV in the left antecubital space with an 20g angiocath, with aseptic technique and good blood return; one attempt. Blood drawn: rainbow set. Labeled in the presence of the patient and sent to the lab. Saline lock flushed with 10 mL saline. --13:36 Jovanna Serrato R.N. 13:37 02/02/17. ( Pt's brace on left leg removed by sterile processing technologist for EKG, then pt assisted to BSC, 2 assist, to void a 2nd time.). --13:37 Jovanna Serrato R.N. 13:44 02/02/2017 Zofran (Ondansetron HCl) IVP 4 mg given over 2 minute(s) via site #1. Allergies verified and confirmed 5 rights. --13:46 Jovanna Serrato R.N. 13:46 02/02/2017 Dilaudid (HYDROmorphone HCl PF) IVP 0.5 mg given over 1 minute(s) via site #1. Allergies verified, confirmed 5 rights and sedative warning given. --13:46 Jovanna Serrato R.N. EKG time: (1320). EKG was ordered, performed by a tech and shown to the ED physician. --13:51 Sho Aviles 13:57 02/02/2017 Started bag #1 1000 mL IV Fluids IV NS (Saline); at 250 mL/hr via site #1 via IV pump. Confirmed 5 rights. --13:57 Jovanna Serrato R.N. 14:36 02/02/17. BP: 156/72. HR: 74. RR: 18. O2 saturation: 98% on room air. Pain level now: 02/03. --14:37 Jovanna Serrato R.N. 14:56 02/02/17. Assisted patient to bedside commode and back to bed; tolerated well (2 person assist, sterile processing technologist and myself, voided small amount clear straw urine). --14:56 Jovanna Serrato R.N. 15:46 02/02/2017 Potassium Chloride (Potassium Chloride ER) PO Tablets 40 meq given. Allergies verified and confirmed 5 rights. --15:46 Patience Reagan R.N. DISPOSITION / DISCHARGE 15:55 02/02/17. BP: 155/71. HR: 80. RR: 18. O2 saturation: 98%. Pain level now: 02/03. --16:23 Jovanna Serrato R.N. Departure time: 1555. Condition at departure: improved. No learning barriers present. Discharge instructions provided and reviewed with the patient and family. Reviewed medication(s) information. Prescription(s) given to the patient. Treatments reviewed. Reviewed referral to family practice for followup. Patient verbalized understanding. Written instructions provided. The patient was discharged home and accompanied by family. She left the Emergency Department ambulatory, via private vehicle and (with walker, escorted patient and her son to the vehicle). Family member driving. --16:32 Jovanna Serrato R.N. Locked/Released at 02/02/2017 16:32 by Jovanna Serrato R.N.
--- NOTE | 2017-02-02 16:46 | ED MED RECONCILIATION SUMMARY ---
Patient: JERRELL HUNT Medication Reconciliation Report [facility] VisitID: [id number] [address] [place] [address] 76y, F Registration Date/Time: 02/02/2017 Weight: 78.0 kg Height/Length: 62 in. BMI: 31.5 ALLERGIES: Boniva, Gabapentin, Nortriptyline, Xarelto The patient's Home Medications are listed below: STOP TAKING THE FOLLOWING MEDICATIONS: Robaxin Oral 500 mg, 1/2 tablet, 3x a day CONTINUE TAKING THE FOLLOWING MEDICATIONS: Aspirin Oral (81 mg) 1 tablet Calcium + D3 Oral 2 tabs, daily Docusate Calcium Oral Doxycycline Hyclate Oral 100 mg twice daily Glucosamine-Chondroitin Oral Lovastatin Oral (40 mg) 1 tablet, daily MetFORMIN HCl Oral 750mg ER [id number], daily Multivitamins Oral [place] Oral (5-325 mg) 1-2 tabs prn pain Omeprazole Oral 20 mg, daily Triamcinolone Acetonide External (0.1 %), 2x a day Triamterene-HCTZ Oral (37.5-25 mg) 1 capsule, daily The source(s) of the original Home Medication information: Not obtained. The following Medications were given to the patient in the Emergency Department: Zofran [IVP] IVP 4 mg, administered: 02/02/2017 1:44:00 PM Dilaudid [IVP] IVP 0.5 mg, administered: 02/02/2017 1:46:00 PM IV NS IV Fluids bolus 0, then 250 mL/hr, administered: 02/02/2017 1:57:00 PM Potassium Chloride [PO] PO 40 meq, administered: 02/02/2017 3:46:00 PM The following Medications were prescribed to the patient: Tizanidine 4 mg: Take 1 tablet orally every 8 hours as needed for muscle spasm. Dispense fifteen (15). No refills. -- Mayur Mcdowell,
--- NOTE | 2017-02-02 16:46 | ED MAR SUMMARY ---
..... Medication Administration Record [facility] [address] [place] [address] Patient: JERRELL HUNT Visit ID: [id number] 76y, F Weight: 78.0 kg Height/Length: 62 in BMI: 31.5 ALLERGIES: Boniva, Xarelto, Gabapentin, Nortriptyline Given 13:44 02/02/2017 Jovanna Serrato R.N. Medication Administered: ZOFRAN [IVP] (ONDANSETRON HCL), Dose: 4 mg IVP over 2 minute(s), Site: #1 left AC. Medication Ordered: Zofran IV 4 mg (NOW). Given 13:46 02/02/2017 Jovanna Serrato R.N. Medication Administered: DILAUDID [IVP] (HYDROMORPHONE HCL PF), Dose: 0.5 mg IVP over 1 minute(s), Site: #1 left AC. Medication Ordered: Dilaudid IV 0.5 mg (HIGH ALERT MEDICATION, NOW). Start 13:57 02/02/2017 Jovanna Serrato R.N. Medication Administered: IV NS (SALINE), Dose: IV Fluids, Rate: 250 mL/hr, Dispensed: 1000 mL bag, Site: #1 left AC. Medication Ordered: IV NS : initial bolus 250 mL (1000 mL/hr), then 250 mL/hr for X3 (NOW). Given 15:46 02/02/2017 Patience Reagan R.N. Medication Administered: POTASSIUM CHLORIDE [PO] (POTASSIUM CHLORIDE ER), Dose: 40 meq Tablets PO. Medication Ordered: Potassium Chloride PO 40 meq (NOW).
--- NOTE | 2017-02-02 16:46 | ED MED RECONCILIATION SUMMARY ---
Patient: JERRELL HUNT Medication Reconciliation Report [facility] VisitID: [id number] [address] [place] [address] 76y, F Registration Date/Time: 02/02/2017 Weight: 78.0 kg Height/Length: 62 in. BMI: 31.5 ALLERGIES: Boniva, Gabapentin, Nortriptyline, Xarelto The patient's Home Medications are listed below: STOP TAKING THE FOLLOWING MEDICATIONS: Robaxin Oral 500 mg, 1/2 tablet, 3x a day CONTINUE TAKING THE FOLLOWING MEDICATIONS: Aspirin Oral (81 mg) 1 tablet Calcium + D3 Oral 2 tabs, daily Docusate Calcium Oral Doxycycline Hyclate Oral 100 mg twice daily Glucosamine-Chondroitin Oral Lovastatin Oral (40 mg) 1 tablet, daily MetFORMIN HCl Oral 750mg ER [id number], daily Multivitamins Oral [place] Oral (5-325 mg) 1-2 tabs prn pain Omeprazole Oral 20 mg, daily Triamcinolone Acetonide External (0.1 %), 2x a day Triamterene-HCTZ Oral (37.5-25 mg) 1 capsule, daily The source(s) of the original Home Medication information: Not obtained. The following Medications were given to the patient in the Emergency Department: Zofran [IVP] IVP 4 mg, administered: 02/02/2017 1:44:00 PM Dilaudid [IVP] IVP 0.5 mg, administered: 02/02/2017 1:46:00 PM IV NS IV Fluids bolus 0, then 250 mL/hr, administered: 02/02/2017 1:57:00 PM Potassium Chloride [PO] PO 40 meq, administered: 02/02/2017 3:46:00 PM The following Medications were prescribed to the patient: Tizanidine 4 mg: Take 1 tablet orally every 8 hours as needed for muscle spasm. Dispense fifteen (15). No refills. -- Mayur Mcdowell,
--- NOTE | 2017-02-02 16:46 | ED DISCHARGE INSTRUCTIONS ---
Patient: JERRELL HUNT General Instructions [facility] VisitID: [id number] [address] [place] [place] [id number] 76y, F Registration Date/Time: 02/02/2017 Episodic, poorly controlled tension and vascular headache. Essential hypertension. Hypokalemia INSTRUCTIONS Drink plenty of fluids. (Stop Robaxin and try tizanidine as prescribed). Warnings: Further evaluation is necessary. It is very important to follow up with a physician. CONTROLLED SUBSTANCE WARNINGS. GENERAL WARNINGS: Return or contact your physician immediately if your condition worsens or changes unexpectedly, if not improving as expected, or if other problems arise. Your Current Medications: STOP TAKING THE FOLLOWING MEDICATIONS: Robaxin Oral : 500 mg, 1/2 tablet 3x a day, prn. CONTINUE TAKING THE FOLLOWING MEDICATIONS: Aspirin Oral : Tablet Chewable 81 mg, 1 tablet. Calcium + D3 Oral : 2 tabs daily. Docusate Calcium Oral : prn. Doxycycline Hyclate Oral : 100 mg twice daily. Glucosamine-Chondroitin Oral. Lovastatin Oral : Tablet 40 mg, 1 tablet daily. MetFORMIN HCl Oral : 750mg ER [id number] daily. Multivitamins Oral. [place] Oral : Tablet 5-325 mg, 1-2 tabs prn pain. Omeprazole Oral : 20 mg daily. Triamcinolone Acetonide External : Cream 0.1 %, 2x a day, prn. Triamterene-HCTZ Oral : Capsule 37.5-25 mg, 1 capsule daily. Prescription Medications: Tizanidine 4 mg: Take 1 tablet orally every 8 hours as needed for muscle spasm. Dispense fifteen (15). No refills. Follow-up with: Troy Swift MD, Family Practice, , [facility], [address] [place] [address] Follow up in about three days. ADDITIONAL INFORMATION High Blood Pressure -- To Be Confirmed [No Tx] Your blood pressure was higher today than normal. Sometimes anxiety or pain can cause a temporary rise in blood pressure that later returns to normal. If your blood pressure is high on one measurement, this does not mean that you have hypertension (a chronic illness). However, you must have your blood pressure measured again within the next few days to find out if its still high. A normal blood pressure is 120/80 or less. The first (top) number is the "systolic" pressure. The second (bottom) number is the "diastolic" pressure. Hypertension exists when either the top number is 140 or higher, OR the bottom number is 90 or higher on repeated measurements. Blood pressure in the range of 120-140 (systolic) or 80-89 (diastolic) is considered "pre-hypertension". This means your are at risk for getting hypertension. You should have regular blood pressure checks to be sure your blood pressure is not rising. Home Care: Measure your blood pressure on 3 different days and write down the results. This can be done at your doctor's office or this facility. Some pharmacies and grocery stores offer automated blood pressure machines for your use. Follow Up: If your blood pressure is "high" (over 120/80) on 2 out of 3 days, you will need to follow up with your doctor for further evaluation and treatment. DO NOT PUT THIS OFF! Untreated high blood pressure increases the risk for heart attack, also known as acute myocardial infarction, or AMI, and stroke. It is a treatable condition. Get Prompt Medical Attention if any of the following occur: Chest pain or shortness of breath Severe headache Throbbing or rushing sound in the ears Nosebleed Sudden severe abdominal pain Extreme drowsiness, confusion or fainting Dizziness or vertigo (dizziness with spinning sensation) Weakness of an arm or leg or one side of the face Difficulty with speech or vision Hypokalemia Hypokalemia means a low level of potassium in the blood. This most often occurs in patients who take diuretics (water pills). It can also occur due to severe vomiting or diarrhea. A mild case usually causes no symptoms. It is only found with blood testing. More severe potassium loss causes generalized weakness, muscle or abdominal cramping, heart palpitations (rapid or irregular heartbeats) and low blood pressure. Home Care: 1) Take any potassium supplements prescribed. 2) Eat foods rich in potassium. The highest amount is found in artichoke, baked potatoes, spinach, cantaloupe, honeydew melon, cod, halibut, salmon, and scallops. White, red, or matias beans are also very good sources. A modest amount is found in orange juice, bananas, carrots, and tomato juice. 3) Certain types of diuretics (water pills), such as Lasix (furosemide), require that you take potassium supplements for as long as you take the diuretic pills. If you are taking a diuretic, discuss the need for potassium supplements with your doctor. Follow Up with your doctor for a repeat blood test within the next week or as advised by our staff. Get Prompt Medical Attention if any of the following occur: -- Increased weakness -- Feeling dizzy -- Irregular heartbeat, extra beats or very fast heart rate -- Fainting spell Tension Headache Muscle Tension Headache (also called "stress headache") is a very common cause of head pain. Under stress, some people tense the muscles of their shoulder, neck and scalp without knowing it. If this lasts long enough, a headache can occur. These headaches can be very painful and last for hours or even days. Home Care: If you were given pain medicine for this headache, do not drive yourself home. Arrange for a ride, instead. When you get home, try to sleep. You should feel much better when you wake up. Heat to the back of your neck may relieve neck spasm. Drink only clear liquids or eat a very light diet to avoid nausea/vomiting until symptoms improve. Preventing Future Headaches Identify the sources of stress in your life. These may not be obvious! Learn new ways to handle your stress, such as regular exercise, biofeedback, self-hypnosis and meditation. For more information about this, consult your doctor or go to a local bookstore and review the many books and tapes on this subject. At the first sign of a tension headache, take time out if possible. Remove yourself from the stressful situation, find a quiet comfortable place to sit or lie down and let yourself relax. Heat and deep massage of the tight areas in the neck and shoulders may help reduce muscle spasm. Medicine, such as ibuprofen (Advil or Motrin) or a prescribed muscle relaxant may be helpful at this point. Follow Up with your doctor if the headache is not better within the next 24 hours. If you have frequent headaches you should discuss a treatment plan with your primary care doctor. Ask if you can have medicine to take at home the next time you get a bad headache. This may avoid the need for a visit to the emergency department in the future. Poorly controlled chronic headaches may require a referral to a neurologist (headache specialist). Get Prompt Medical Attention if any of the following occur: Worsening of your head pain or no improvement within 24 hours Repeated vomiting (unable to keep liquids down) Fever of 100.4F (38C) or higher, or as directed by your healthcare provider Stiff neck Extreme drowsiness, confusion or fainting Dizziness, vertigo (dizziness with spinning sensation) Weakness of an arm or leg or one side of the face Difficulty with speech or vision Headache [Unspecified] The cause of your headache today is not clear, but it does not appear to be the sign of any serious illness. Under stress, some people tense the muscles of their shoulder, neck and scalp without knowing it. If this condition lasts long enough, a TENSION HEADACHE can occur. A MIGRAINE HEADACHE is caused by changes in blood flow to the brain. A migraine attack may be triggered by emotional stress, hormone changes during the menstrual cycle, oral contraceptives, alcohol use, certain foods containing tyramine, eye strain, weather changes, missing meals, lack of sleep or oversleeping. Other causes of headache include a viral illness with high fever, head injury with concussion, sinus, ear or throat infection, dental pain and TMJ (jaw joint) pain. More serious but less common causes of headache include stroke, brain hemorrhage, brain tumor, meningitis and encephalitis. Home Care: If you were given pain medicine for this headache, do not drive yourself home. Arrange for a ride, instead. When you get home, try to sleep. You should feel much better when you wake up. Apply heat to the back of your neck to relieve neck muscle spasm. Migraine headaches may respond best to an ice pack on the forehead or at the base of the skull. If you are having nausea or vomiting, follow a light diet until your headache is relieved. If you have a migraine type headache, use sunglasses when in the daylight or around bright indoor lighting until symptoms improve. Bright glaring light can worsen this kind of headache. Follow Up with your doctor if the headache is not better within the next 24 hours. If you have frequent headaches you should discuss a treatment plan with your primary care doctor. By being aware of the earliest signs of headache, and starting treatment right away, you may be able to stop the pain yourself. Get Prompt Medical Attention if any of the following occur: Worsening of your head pain or no improvement within 24 hours Repeated vomiting (unable to keep liquids down) Fever of 100.4F (38C) or higher, or as directed by your healthcare provider Stiff neck Extreme drowsiness, confusion or fainting Dizziness, vertigo (dizziness with spinning sensation) Weakness of an arm or leg or one side of the face Difficulty with speech or vision You have been given the following additional information: Hypertension, To Be Confirmed Hypokalemia Headache, Tension Headache, Unspecified (Electronically signed by Mayur Mcdowell DO 02/02/2017 16:45)
--- NOTE | 2017-02-02 16:46 | ED MAR SUMMARY ---
..... Medication Administration Record [facility] [address] [place] [address] Patient: JERRELL HUNT Visit ID: [id number] 76y, F Weight: 78.0 kg Height/Length: 62 in BMI: 31.5 ALLERGIES: Boniva, Xarelto, Gabapentin, Nortriptyline Given 13:44 02/02/2017 Jovanna Serrato R.N. Medication Administered: ZOFRAN [IVP] (ONDANSETRON HCL), Dose: 4 mg IVP over 2 minute(s), Site: #1 left AC. Medication Ordered: Zofran IV 4 mg (NOW). Given 13:46 02/02/2017 Jovanna Serrato R.N. Medication Administered: DILAUDID [IVP] (HYDROMORPHONE HCL PF), Dose: 0.5 mg IVP over 1 minute(s), Site: #1 left AC. Medication Ordered: Dilaudid IV 0.5 mg (HIGH ALERT MEDICATION, NOW). Start 13:57 02/02/2017 Jovanna Serrato R.N. Medication Administered: IV NS (SALINE), Dose: IV Fluids, Rate: 250 mL/hr, Dispensed: 1000 mL bag, Site: #1 left AC. Medication Ordered: IV NS : initial bolus 250 mL (1000 mL/hr), then 250 mL/hr for X3 (NOW). Given 15:46 02/02/2017 Patience Reagan R.N. Medication Administered: POTASSIUM CHLORIDE [PO] (POTASSIUM CHLORIDE ER), Dose: 40 meq Tablets PO. Medication Ordered: Potassium Chloride PO 40 meq (NOW).
== END 2017-02-02 15:55 | disposition home or self-care (01) ==
LOC: ED SRH 12:29
DX: G44.219 Episodic tension-type headache, not intractable (principal); G44.1 Vascular headache, not elsewhere classified; I10 Essential (primary) hypertension; E87.6 Hypokalemia; E11.9 Type 2 diabetes mellitus without complications; K21.9 Gastro-esophageal reflux disease without esophagitis; Z79.899 Other long term (current) drug therapy; Z79.84 Long term (current) use of oral hypoglycemic drugs; Z88.8 Allergy status to other drugs, medicaments and biological substances
CPT/HCPCS: 90004; 90098; 90100; 90616; 91320; 91556; 92010; 92530; 92610; 92720; 92760; 92761; 92762; 92763; 92764; 92765; 92766; 92767; 93140; 94001; 94060; 95059; 95150

== ENCOUNTER 2017-02-08 16:25 | Outpatient (CLI) | payer OTHER, BC ==
--- NOTE | 2017-02-08 17:06 | DIAGNOSTIC IMAGING REPORT ---
PROCEDURE: XR CERVICAL SPINE 4 OR 5 VIEW INDICATION: ACUTE NECK PAIN TECHNIQUE: Five views. COMPARISON: None. FINDINGS: Severe spondylosis C3-4, C4-5, and C5-6. Large posterior cervical osteophytes are seen at these levels. There is also bilateral foraminal impingement at these levels. IMPRESSION: 1. Severe spondylosis C3-C6 with posterior osteophytic ridges and bilateral foraminal impingement.
== END 2017-02-08 23:00 | disposition home or self-care (01) ==
LOC: XR SRH 16:25
DX: M47.812 Spondylosis without myelopathy or radiculopathy, cervical region (principal)